=== PATIENT | male | born 1950 | race Caucasian/White ===

== ENCOUNTER 2017-08-04 07:40 | Outpatient (CLI) | payer MEDICARE, OTHER ==
--- NOTE | 2017-08-04 14:10 | MRI Report ---
EXAM: MRI BRAIN WITHOUT CONTRAST EXAM DATE: 08/04/2017 08:35 AM. CLINICAL HISTORY: Daily frontal headaches. COMPARISON: None. TECHNIQUE: Multiplanar, multisequence T1-weighted and fluid-sensitive MR sequences of the brain were performed. Sequences optimized for routine evaluation. Other: None. IV Contrast: None. FINDINGS: No cerebellar tonsillar ectopia is present. No abnormal diffusion signal or magnetic susceptibility i s identified in the brain parenchyma. Ventricles and sulci are within normal limits for the patient's age. There is no extra-axial fluid co llection present. Subcortical and deep white matter FLAIR hyperintensities are seen in the cerebral hemisphere white ma tter bilaterally. There is a frontal lobe predominance. No abnormal T2 or FLAIR signal is identified in the brainstem or in either cerebellar hemisphere. No abnormal T1 shortening is present in the brain parenchyma. No mass is present in either orbit. Expected flow voids are seen in the major intracranial vessels at the skull. An expected flow void is seen in the superior sagittal sinus and in each transverse sinus . Scattered paranasal sinus mucosal thickening is noted. IMPRESSION: 1. No intracranial mass or extra-axial fluid collection is identified by noncontrast MRI. 2. Subcortical and deep white matter FLAIR hyperintensities in the cerebral hemisphere white matter b ilaterally are nonspecific. Commonly, these are seen secondary to small vessel ischemic change or in association with certain headache syndromes. 3. No acute or subacute CVA is present on diffusion-weighted imaging. 4. Scattered paranasal sinus mucosal thickening. Referring Provider Line: [phone] SITE ID: [id number]
== END 2017-08-04 07:41 | disposition home or self-care (01) ==
LOC: DI 07:40
DX: R51 Headache (principal)
CPT/HCPCS: 70551

== ENCOUNTER 2019-12-12 07:29 | Outpatient (CLI) | payer MEDICARE, OTHER | END 2019-12-12 07:30 | disposition EMS.NT | LOC: EMS 07:29 | PROVIDERS: ATTEND Surgery | DX: M54.5 Low back pain (principal); M25.511 Pain in right shoulder; V13.4XXA Pedal cycle driver injured in collision with car, pick-up truck or van in traffic accident, initial encounter; Y93.55 Activity, bike riding; Y92.414 Local residential or business street as the place of occurrence of the external cause ==

== ENCOUNTER 2021-04-12 07:00 | Outpatient (CLI) | payer MEDICARE, OTHER ==
--- NOTE | 2021-04-12 18:49 | XRAY Report ---
PROCEDURE: Cervical Spine 2 View INDICATIONS: RADICULOPATHY, CERVICAL REGION TECHNIQUE: 3 view(s) of the cervical spine were acquired. COMPARISON: None. FINDINGS: Bones: No fractures or dislocations to the C7-T1 level. The lateral masses of C1 appear intact on t he odontoid view. No suspicious bony lesions. Multilevel mild to moderate disc space narrowing is p resent. Multilevel uncovertebral hypertrophy is present. Minimal anterior osteophytes are noted. Soft tissues: No prevertebral soft tissue swelling. IMPRESSION: Multilevel degenerative changes. If concern persists for foraminal narrowing, MRI is rec ommended. Reviewed by: Radha Templeton MD on 04/12/2021 6:48 PM PDT Approved by: Radha Templeton MD on 04/12/2021 6:48 PM PDT Station ID: [id number]
== END 2021-04-12 23:59 | disposition home or self-care (01) ==
LOC: DI.N 07:00
PROVIDERS: ATTEND Physician Assistant Medical
DX: M50.10 Cervical disc disorder with radiculopathy, unspecified cervical region (principal)

== ENCOUNTER 2021-06-18 16:48 | Outpatient (CLI) | payer MEDICARE, OTHER ==
--- NOTE | 2021-06-19 11:30 | Ultrasound Report ---
PROCEDURE: Duplex Lwr Ext Arterial Bilat INDICATIONS: PERIPHERAL VASCULAR DISEASE TECHNIQUE: Color and pulse Doppler interrogation was performed of both lower extremity arterial systems, with im age documentation. COMPARISON: None FINDINGS: Right lower extremity: Common femoral artery: 174 cm/sec, with biphasic/triphasic flow. Deep femoral artery: 73 cm/sec, with biphasic/triphasic flow. Proximal superficial femoral artery: 98 cm/sec, with biphasic/triphasic flow. Mid superficial femoral artery: 114 cm/sec, with biphasic flow. Distal superficial femoral artery: 91 cm/sec, with biphasic flow. Popliteal artery: 77 cm/sec, with biphasic flow. Posterior tibial artery: 109 cm/sec, with biphasic flow. Anterior tibial artery/dorsalis pedis: 107/73 cm/sec, with biphasic/biphasic flow. Mccabe-scale imaging description: Mild scattered calcific and soft plaque present bilaterally. Left lower extremity: Common femoral artery: 163 cm/sec, with biphasic flow. Deep femoral artery: 79 cm/sec, with triphasic flow. Proximal superficial femoral artery: 118 cm/sec, with biphasic flow. Mid superficial femoral artery: 123 cm/sec, with biphasic flow. Distal superficial femoral artery: 99 cm/sec, with triphasic flow. Popliteal artery: 75 cm/sec, with biphasic/triphasic flow. Posterior tibial artery: 117 cm/sec, with biphasic flow. Anterior tibial artery/dorsalis pedis: 113/50 cm/sec, with biphasic/biphasic flow. Mccabe-scale imaging description: Mild scattered calcific and soft plaque present bilaterally. IMPRESSION: Scattered calcific and soft plaque present within the lower extremity arterial vasculature but withou t focal high-grade stenosis or areas of reduced flow velocity. Note was made of irregular heart rate during the course of this examination. Please correlate clinically for chronicity of this finding and to determine whether arterial insufficiency could be associated. Reviewed by: Dale Barros MD on 06/19/2021 11:29 AM PDT Approved by: Dale Barros MD on 06/19/2021 11:29 AM PDT Station ID: [id number]
== END 2021-06-18 16:49 | disposition home or self-care (01) ==
LOC: DI 16:48
PROVIDERS: ATTEND Student in an Organized Health Care Education/Training Program
DX: I73.9 Peripheral vascular disease, unspecified (principal); I49.9 Cardiac arrhythmia, unspecified
CPT/HCPCS: 93925